=== PATIENT | male | born 2000 | race Caucasian/White ===

== ENCOUNTER 2024-10-31 00:14 | Emergency (ER) | payer MEDICAID, SELFPAY ==
[2024-10-31 00:17] VITALS: BMI 26.6
[2024-10-31 00:23] VITALS: BP 135/85; PULSE 69; RESP 18; TEMP 36.4; O2SAT 98
[2024-10-31] MEDS: TETRACAINE PF OP SOL 0.5% 4 ML DRPETTE 1 DROP RIGHT EYE (01:35)
[2024-10-31] MEDS: FLUORESCEIN SOD 1 MG STRP RIGHT EYE (01:35)
--- NOTE | 2024-10-31 01:54 | PD.EDEYE ---
ED Eye Problem RME/HPI General Chief complaint: Eye Problems Stated complaint: eye pain Time Seen by Provider: 10/31/24 01:03 Arrival date/time: 10/31/24 00:14 This is a case of 24-year-old male who came into the emergency room due to right eye irritation for 4 days patient states that he thinks that something on his right eye patient was working when something went to his eye and started to have right eye irritation no eye pain no blurring of vision Limitations: no limitations Related Data Previous Rx's ?Medication ?Instructions ?Recorded ofloxacin 0.3 % eye drops 1 drp ophthalmic (eye) QID 10 days 10/31/24 #10 mL Allergies Allergy/AdvReac Type Severity Reaction Status Date / Time No Known Allergies Allergy Verified 10/31/24 00:20 Review of Systems Review of Systems Systems Reviewed: All systems reviewed, normal except as documented Constitutional Constitutional: Reports system reviewed and no additional complaints, except as documented Eyes Eyes: Reports system reviewed and no additional complaints, except as documented, Reports as per HPI, Denies blind spots, Denies blurry vision, Denies change in vision, Denies decreased night vision, Denies diplopia, Denies eye discharge, Denies dry eyes, Denies exophthalmos, Denies floaters, Reports irritation, Denies itchy eyes, Denies loss of peripheral vision, Denies loss of vision, Denies other visual disturbances, Denies eye pain, Denies photophobia, Denies requires corrective lenses, Denies seeing flashes, Denies spots in vision and Denies tunnel vision Cardiovascular Cardiovascular: Reports system reviewed and no additional complaints, except as documented Respiratory Respiratory: Reports system reviewed and no additional complaints, except as documented Gastrointestinal Gastrointestinal: Reports system reviewed and no additional complaints, except as documented Musculoskeletal Musculoskeletal: Reports system reviewed and no additional complaints, except as documented Neurologic Neurologic: Reports system reviewed and no additional complaints, except as documented and Denies loss of vision Allergic/Immunologic Allergic/Immunologic: Denies itchy eyes Past Medical History Past Medical History NEUROLOGIC: Positive Seizures CARDIAC: Negative Congestive Heart Failure RESPIRATORY: Negative Chronic Obstructive Pulmonary Disease (COPD) GENITOURINARY: Negative Renal Disease ENDOCRINE: Negative Diabetes Mellitus Type 1 or Diabetes Mellitus Type 2 Social History SMOKING STATUS: Never smoker ED Exam General Limitations: Present no limitations General appearance: Present alert and in no apparent distress Head Head exam: Present atraumatic Eye Eye exam: Present normal appearance, PERRL and EOMI; Absent nystagmus, periorbital swelling or periorbital tenderness Expanded Eye Exam Slit lamp exam: performed (Patient noted to have corneal abrasion on the 9 o'clock position negative corneal edema ulcer negative Davon sign no foreign body ) Eyelids: right: normal inspection and erythema Pupils: Right: regular, round and reactive Sclera/Conjunctival: right: normal inspection Anterior chamber: right: normal inspection ENT ENT exam: Present normal exam, normal oropharynx and mucous membranes moist Neck Neck exam: Present normal inspection, full ROM and trachea midline Chest Chest inspection: Present normal inspection and symmetric chest wall rise Respiratory Respiratory exam: Present normal lung sounds bilaterally Cardiovascular Cardiovascular exam: Present regular rate, normal rhythm and normal heart sounds Abdominal Exam Abdominal exam: Present soft and normal bowel sounds Extremities Exam Extremities exam: Present normal inspection and full ROM Back Exam Back exam: Present normal inspection and full ROM Neurological Exam Neurological exam: Present alert, oriented X3, CN II-XII intact, normal gait and reflexes normal; Absent motor sensory deficit Psychiatric Psychiatric exam: Present normal affect and normal mood Skin Skin exam: Present warm, dry, intact and normal color Course Quality Measures none Orders Category Date Time Status Erythromycin Op Oint 0.5% Med 10/31/24 01:55 Discontinued 1 gm RIGHT EYE X1 ONE Fluorescein Sodium [Poxyl-K-Nsflv] Med 10/31/24 01:28 Discontinued 1 mg RIGHT EYE X1 ONE TET,DIP/PERT AC (Adult)-Tdap [Boostrix Adult (Tdap) Med 10/31/24 01:55 Discontinued Vacc] 0.5 ml IMI .ONCE ONE TETRACAINE Op Maria Alejandra 0.5% [Pontocaine Op Maria Alejandra 0.5%] Med 10/31/24 01:28 Discontinued 1 drop RIGHT EYE X1 ONE Vital Signs Vital signs: Vital Signs Temperature 97.6 F 10/31/24 00:23 Pulse Rate 69 10/31/24 00:23 Respiratory Rate 18 10/31/24 00:23 Blood Pressure 135/85 H 10/31/24 00:23 Pulse Oximetry (%) 98 10/31/24 00:23 Oxygen Delivery Method Room Air 10/31/24 00:23 Oxygen saturation 98% in room air Eye MDM Narrative MDM Narrative:: This is a case of 24-year-old male who came into the emergency room due to right eye irritation for 4 days patient states that he thinks that something on his right eye patient was working when something went to his eye and started to have right eye irritation no eye pain no blurring of vision physical examination patient is awake alert oriented not in distress nontoxic looking external examination of the right eye no periorbital edema swelling or redness PERRL EOM intact visual acuity done by me and is normal no hyphema positive red-orange reflex no pappiledema no subconjunctival hemorrhage mild redness on the conjunctiva both right upper and lower eyelid were normal no redness no swelling no discharge no foreign body noted patient was placed on a lying position tetracaine was applied with fluorescein strip visualized the right eye with Ortiz lamp no foreign body noted but with corneal abrasion at the 9 o'clock position negative Davon signs no corneal edema or ulcer patient tolerated well the procedure irrigation of the right eye was performed to remove the stain I discussed with the patient the importance to see the account services specialist for further evaluation and treatment of the corneal abrasion the risk of not going to the account services specialist including the loss of eyesight was also discussed with the patient patient understood the discharge instruction erythromycin ointment was applied to the right eye with application of the eye patch tetanus shot was also given patient understood the discharge instruction Patient was discharged with comfortable condition walking with stable gait. Patient verbalized no further complains explained diagnosis and answered patient question. Patient is comfortable with the proposed management plan including the need to follow up with his/her primary care physician and any specialist if applicable Discussed patient for any urgent condition or worsening sx, He/She needed to go to emergency room immediately or call 911. Patient acknowledge the responsibility to follow up as instructed and to monitor her/his symptoms. For any persistence of the symptoms for more than 3-5 days return precaution advised. Discussed the result of the test and was given printed discharge instruction Patient data External records reviewed:: [facility] previous records Clinical information provided by:: patient Social determinants that could affect healthcare access:: none Patient has the following chronic illnesses:: none How is presenting disease/condition affected by chronic disease/condition?: no chronic disease Evaluation data The following diagnostics were reviewed and interpreted by me:: other (specify) (none) Lab and/or radiology exams considered but not ordered:: None Interpretation Summary: None Medications / Prescriptions Medications or Prescriptions considered but not ordered:: Given Medication administrations:: Medication Administration History Discontinued Medications Diphtheria/Tetanus/Acell Pertussis (Diphth,Pertuss(Acell),Tet Vac 0.5 Ml Syr- Adult) 0.5 ml IMi .ONCE ONE Stop: 10/31/24 01:56 Erythromycin (Erythromycin Op Oint 0.5% 1 Gm Packet) 1 gm RIGHT EYE X1 ONE Stop: 10/31/24 01:56 Last Admin: 10/31/24 02:42 Dose: 1 gm Documented By: BRENDON Co-signed By: SONIYA Fluorescein Sodium (Fluorescein Sod 1 Mg Strp) 1 mg RIGHT EYE X1 ONE Stop: 10/31/24 01:29 Last Admin: 10/31/24 01:35 Dose: 1 mg Documented By: VIDHI Tetracaine HCl (Tetracaine Pf Op Maria Alejandra 0.5% 4 Ml Drpette) 1 drop RIGHT EYE X1 ONE Stop: 10/31/24 01:29 Last Admin: 10/31/24 01:35 Dose: 1 drop Documented By: VIDHI Given Consultations Consultation(s) initiated? (list below): No Diagnosis Eye Problem Differential Diagnosis: corneal abrasion, conjunctivitis and subconjunctival hemorrhage Most likely diagnosis given after review of the tests above:: Corneal abrasion Admission Indicated Admission indicated?: not indicated Explain why admission is indicated or not indicated:: Not indicated Admission Request Was there a request for admission?: No Admission Attestation Admission request attestation: Not indicated Disposition Plan Disposition Plan: Discharge Discharge Attestation Discharge Attestation: The patient and all family members were given an opportunity to ask questions and understood the discharge instructions. Discharge instructions specifically effects, indications for sooner follow up or return to the emergency department, and the expected course of current diagnosis. Patient condition: Stable Discharge Plan Plan Patient Disposition: HOME (Self Care) Patient condition on transfer: Stable Prescriptions/Referrals Prescriptions/Med Rec: New ofloxacin 0.3 % drops 1 drp ophthalmic (eye) QID 10 Days Qty: 10 0RF Referrals: Satish Ordaz MD [Physician] - In 1 week (Further evaluation and treatment of right corneal abrasion) No Primary/Family,Physician [Primary Care Provider] - In 1 week Problem List Clinical Impression: Corneal abrasion Patient/Caregiver Discharge Instructions Education Materials: ED Corneal Abrasion Additional Instructions: Follow-up with your primary care physician in 2 days for reevaluation it is important to see an account services specialist tomorrow for reevaluation for your right corneal abrasion worsening symptoms or any emergent concerns such as blurring of vision or eye pain return to the emergency room immediately or call 911 apply the medication as directed no reading no watching TV no cell phone no driving is advised use of eye patch is advised Print Language: Latvian Stand Alone Forms: Joan Award Info., Patient Portal Info Letter PA/SHANE Supervising Physician PA/SHANE Supervising Physician: dr maciel
[2024-10-31] MEDS: Erythromycin Op Oint 0.5% 1 GM PACKET RIGHT EYE (02:42)
== END 2024-10-31 02:45 | disposition home or self-care (01) ==
PROVIDERS: Emergency Provider Emergency Medicine
DX: S05.01XA Injury of conjunctiva and corneal abrasion without foreign body, right eye, initial encounter (principal); X58.XXXA Exposure to other specified factors, initial encounter
CPT/HCPCS: 99283; A9270